=== PATIENT | male | born 1965 | race Caucasian/White ===

== ENCOUNTER 2019-05-11 08:49 | Day surgery (SDC) | payer OTHER, SELFPAY ==
[2019-05-11] VITALS (17 sets, daily range): BP systolic 98–143; BP diastolic 60–81; PULSE 65–76; RESP 15–18; TEMP 36.2–37; O2SAT 92–98; BMI 33.2
--- NOTE | 2019-05-11 | PATH_ITS ---
Note [facility] Accession Number: [id number] TESTS RESULT FLAG UNITS REF RANGE LAB Clinician Provided Cytology Information No. of containers..01 ThinPrep Vial 01 ANTERIOR R LOBE LIVE Clinician ICD10: K74.60 R70.89 DIAGNOSIS: 02 ANTERIOR R LOBE LIVE NEGATIVE FOR MALIGNANT CELLS. iB The cell block contains cores of liver tissue. A trichrome stain reveals prominent hepatic fibrosis with bridging and focal nodularity consistent with cirrohis. There is mild fatty metamorphosis. Portal areas contain some mononuclear inflammatory cells and bile ducts appear normal. There is no significant parenchymal inlflamation and no bile stasis. An iron stain is negative. Pathologist ICD10: 02 K74.60 02 Rashid Delcid MD, Pathologist NPI- [id number] Alok Hamilton, Judo Teacher ([facility]) 01 55 CC, COLORLESS, CLEAR /LCS FLAG LEGEND: L-Low Normal,H-High Normal,LL-Alert Low,HH-Alert High <-Panic Low,>-Panic High,A-Abnormal,AA-Critical Abnormal Performed at: 01 =Z [facility] [address] [facility] [place], [place] [address] Jovanni Beaulieu MD, 02 LCLWA [facility] [place] [address] [place] [id number] Nova Ozuna MD, Performed at: 01 [facility] [address] [facility] [place], [place], [place] [id number] MD Jovanni Beaulieu MD Phone: [phone]
--- NOTE | 2019-05-11 | DI.US.S_ITS ---
PROCEDURE: US ABDOMEN LIMITED INDICATIONS: POST LIVER BIOPSY PAIN TECHNIQUE: Real-time focused scanning was performed of the abdomen, with image documentation. COMPARISON: None. FINDINGS: Ultrasound examination of all 4 quadrants of abdomen and pericolic gutters showed no free fluid. No hematoma formation. IMPRESSION: No evidence of free fluid or hematoma formation. No evidence of active bleeding. Dictated by: Bear Victor M.D. on 05/11/2019 at 14:57 Approved by: Bear Victor M.D. on 05/11/2019 at 14:57
--- NOTE | 2019-05-11 | DI.US.S_ITS ---
PROCEDURE: US BIOPSY LIVER Ultrasound-guided liver biopsy with sedation analgesia for 30 minutes. INDICATIONS: CIRRHOSIS TECHNIQUE: The indications, alternatives, benefits, risks, and complications of the procedure were explained to the patient. Written informed consent was obtained and placed in the chart. Continuous EKG and hemodynamic monitoring was started by trained personnel. Real-time sonography was utilized to choose the site for percutaneous hepatic biopsy. The skin was prepped and draped in the usual sterile fashion. 1% lidocaine was infiltrated down to the hepatic capsule. A coaxial needle was then advanced into the liver under direct sonographic visualization. A biopsy apparatus was then utilized, and core biopsies were obtained. The needle was then withdrawn; a bandage and overlying weight were applied to the biopsy site. COMPARISON: None. FINDINGS: Biopsy site(s): Right hepatic lobe, anterior segment Needle: Netsket biopsy needle set, 20 gauge, 19 gauge trocar. Number of passes: 5, 2 for cyto-prep fluid transport and 3 for formalin fluid transport. Medications: 1% lidocaine for local anaesthesia. IV Versed and Fentanyl for conscious sedation for 30 minutes (see nursing record). Complications: None. IMPRESSION: Successful ultrasound-guided liver biopsy, with pathology results pending. Dictated by: Tyron Fine M.D. on 05/11/2019 at 12:43 Approved by: Tyron Fine M.D. on 05/11/2019 at 12:44
[2019-05-11 09:33] LABS: Add Manual Diff / Slide Review NO; Basophils Absolute Auto 0 /uL (0-100); Basophils Percent Auto 0.4 % (0-2); Eosinophils Absolute Auto 100 /uL (0-450); Eosinophils Percent Auto 2.2 % (2-4); Hematocrit 41.9 % (41-53); Hemoglobin 14.8 g/dL (13.5-17.5); Lymphocytes Absolute Auto 1700 /uL (1100-4500); Lymphocytes Percent Auto 36.3 % (25-40); Mean Corpuscular HGB Conc 35.3 % (30-36); Mean Corpuscular Volume 93.5 fL (80-100); Monocytes Absolute Auto 400 /uL (0-900); Monocytes Percent Auto 8.4 % (3-14); Neutrophils Absolute Auto 2500 /uL (1500-7000); Neutrophils Percent Auto 52.7 % (50-75); Platelet Count 115 X10^3/uL (150-400); Red Blood Cell Count 4.49 X10^6/uL (4.5-5.9); Red Cell Distribution Width 13.5 % (11.6-14.8); White Blood Cell Count 4.7 X10^3/uL (4.5-11.0)
[2019-05-11 09:55] LABS: INR 1.1 (0.9-1.3); Prothrombin Time 12.7 SECONDS (10.1-12.7)
[2019-05-11 09:57] LABS: PTT Partial Thromboplastin Tim 36 SECONDS (26.4-36.2)
[2019-05-11] MEDS: fentaNYL 100 MCG/2 ML INJ 50 MCG IV (10:42)
[2019-05-11] MEDS: MIDAZOLAM 2 MG/2 ML VIAL 1 MG IV (10:42)
--- NOTE | 2019-05-11 10:57 | PC.NURSE ---
Pt tolerated procedure well. Transferred pt via stretcher to PACU and handed off report to Sivan DESAI. Pt awake and alert the whole time. Pain was a 0/10 prior to procedure and 0/10 post procedure. VVO from Dr. Tyron Fine to keep Sandbag on biopsy site for one hour.
--- NOTE | 2019-05-11 12:10 | SUR.PHASEII ---
at 1200 weight removed from pt's abdomen per Dr. Fine. pt now at 45 degree angle to eat lunch.
--- NOTE | 2019-05-11 13:32 | SUR.PHASEII ---
Pt reported 4-5/10 site pain. Stated it was slowly getting worse and then was much worse upon standing up. Ice pack provided. Dr. Fine notified. DI scan planned per Dr. Fine, pt and family notified.
--- NOTE | 2019-05-11 14:10 | SUR.PHASEII ---
Pt's BP is 98/60 and baseline pre-op was 117/70. This finding was reported to Dr. Fine. Lab at bedside for STAT hematocrit.
[2019-05-11 14:25] LABS: Hematocrit 39.6 % (41-53)
--- NOTE | 2019-05-11 15:20 | SUR.PHASEII ---
1420: reported hematocrit result to Dr. Fine who then told me it was okay for the pt to be discharged home. one last set of VS were taken and pt's low BP has resolved, all VSS stable, pt on RA. Pt c/o 03/07 pain, Dr. Fine aware. Pt ambulated to the restroom before being discharged home in a .
== END 2019-05-11 14:50 | disposition home or self-care (01) ==
PROVIDERS: Nurse Practitioner Adult Health; PCP Internal Medicine; Visit Provider Internal Medicine Gastroenterology
DX: K74.60 Unspecified cirrhosis of liver (principal); R79.89 Other specified abnormal findings of blood chemistry; I10 Essential (primary) hypertension; J44.9 Chronic obstructive pulmonary disease, unspecified; E66.9 Obesity, unspecified; E11.9 Type 2 diabetes mellitus without complications; E78.5 Hyperlipidemia, unspecified; K21.9 Gastro-esophageal reflux disease without esophagitis; Z79.4 Long term (current) use of insulin
CPT/HCPCS: 36415; 47000; 76705; 76942; 85014; 85025; 85610; 85730; 88307; 88313; J2250; J3010

== ENCOUNTER 2020-10-11 15:01 | Emergency (ER) | payer OTHER, SELFPAY ==
[2020-10-11] VITALS (18 sets, daily range): BP systolic 99–163; BP diastolic 64–80; PULSE 68–80; RESP 12–24; O2SAT 89–96; BMI 35.5
--- NOTE | 2020-10-11 15:25 | DI.RAD.S_ITS ---
PROCEDURE: XR CHEST 1V INDICATIONS: Diminished breath sounds Left TECHNIQUE: One view of the chest was acquired. COMPARISON: [facility], , CHEST 1 VIEW, 07/31/2012, 22:36. FINDINGS: Surgical changes and devices: None. Lungs and pleura: Severe bilateral emphysematous. No pleural effusions . Small left pneumothorax. Mediastinum: Mediastinal contours appear normal. Heart size is normal. Bones and chest wall: No suspicious bony lesions. Overlying soft tissues appear unremarkable. IMPRESSION: 1. Small left pneumothorax. 2. Severe emphysema. 3. Findings discussed with Dr. Bhatia on 10/11/2020 at 15:53 hours. Dictated by: Panchito Cervantes M.D. on 10/11/2020 at 15:52 Approved by: Panchito Cervantes M.D. on 10/11/2020 at 15:54
[2020-10-11 15:39] LABS: Add Manual Diff / Slide Review NO; Basophils Absolute Auto 0 /uL (0-100); Basophils Percent Auto 0.2 % (0-2); Eosinophils Absolute Auto 100 /uL (0-450); Eosinophils Percent Auto 2.2 % (2-4); Hematocrit 42.6 % (41-53); Hemoglobin 14.3 g/dL (13.5-17.5); Lymphocytes Absolute Auto 1600 /uL (1100-4500); Lymphocytes Percent Auto 23.9 % (25-40); Mean Corpuscular HGB Conc 33.6 % (30-36); Mean Corpuscular Hemoglobin 30.9 PG (26-34); Mean Corpuscular Volume 91.9 fL (80-100); Monocytes Absolute Auto 600 /uL (0-900); Monocytes Percent Auto 8.7 % (3-14); Neutrophils Absolute Auto 4200 /uL (1500-7000); Platelet Count 130 X10^3/uL (150-400); Red Blood Cell Count 4.63 X10^6/uL (4.5-5.9); Red Cell Distribution Width 15.8 % (11.6-14.8); White Blood Cell Count 6.5 X10^3/uL (4.5-11.0)
[2020-10-11 15:43] LABS: Alanine Aminotransferase 55 IU/L (<50); Albumin 4.6 g/dL (3.5-5.0); Albumin Globulin Ratio 1.3 (1.0-2.8); Alkaline Phosphatase 107 U/L (38-126); Aspartate Aminotransferase 59 IU/L (17-59); BUN Creatinine Ratio 22.2 (6-22); Bilirubin Total 1.1 mg/dL (0.2-1.3); Blood Urea Nitrogen 16 mg/dL (9-20); Calcium 9.7 mg/dL (8.4-10.2); Carbon Dioxide 27 mmol/L (22-32); Chloride 102 mmol/L (98-107); Estimated Glomerular Filt Rate > 60.0 mL/min (>60); Globulin 3.6 g/dL (1.7-4.1); Glucose 124 mg/dL (70-100); HEMOLYSIS < 15 (0-50); Potassium 3.7 mmol/L (3.4-5.1); Sodium 136 mmol/L (137-145); Total Protein 8.2 g/dL (6.3-8.2)
[2020-10-11 15:44] LABS: Lactate (Lactic Acid) 1.5 mmol/L (0.7-2.1)
--- NOTE | 2020-10-11 15:48 | PC.NURSE ---
Reports pain that started on tuesday. Worse with inspiration. History of 6 collapsed lungs and pleurisy pain.
[2020-10-11 15:51] LABS: Creatine Kinase 61 U/L (55-170)
--- NOTE | 2020-10-11 15:54 | ED_ITS ---
HPI - Chest Pain General Chief Complaint: Chest Pain Stated Complaint: Thinks pleurisy left side of chest, SOB, COPD Time Seen by Provider: 10/11/20 15:28 Source: patient Mode of arrival: Ambulatory Limitations: no limitations History of Present Illness HPI narrative: Patient is a 55-year-old male with history of 5 pneumothoraces severe blood disease, COPD, JIMMY presenting with left-sided chest pain radiating along his left side for the last 2-3 days. He thinks this may be another pneumothorax. Hurts every time he breathes. He was previously seen at [place] for his pneumothoraces. He states today he has no fever or cough no heart palpitations. MD complaint: chest pain Onset (ago): day(s) (3) Duration: constant Related Data Home Medications Medication Instructions Recorded Confirmed Metformin Hydrochloride 1,000 mg PO BIDCC #0 07/31/12 (GLUCOPHAGE) atenolol 100 mg PO QDAY #0 07/31/12 atorvastatin [Lipitor] 40 mg PO HS #0 07/31/12 hydrochlorothiazide 25 mg PO QDAY #0 07/31/12 ASPIRIN (#ASPIR 81) 81 mg PO Q DAY #0 08/01/12 Multivitamin, Minerals, and 1 tab PO Q DAY #0 08/01/12 (#CENTRUM SILVER) bupropion HCl [Wellbutrin SR] 150 mg PO Q DAY #0 08/01/12 esomeprazole magnesium [Nexium] 40 mg PO Q DAY #0 08/01/12 Allergies Allergy/AdvReac Type Severity Reaction Status Date / Time No Known Drug Allergies Allergy Verified 10/11/20 15:19 Review of Systems Review of Systems Narrative: GENERAL: Denies chills, fatigue, malaise, fever, sweats, travel HEENT: Denies sinus pain, ear pain, sore throat, difficulty swallowing, neck pain RESPIRATORY: See HPI CARDIOVASCULAR: Denies chest pain, palpitations, orthopnea, edema GASTROINTESTINAL: Denies nausea, vomiting, abdominal pain, diarrhea, constipat ion, melena. : Denies dysuria, frequency, incontinence, hematuria, urinary retention, flank pain. MUSCULOSKELETAL: Denies weakness, joint pain, or bony pain SKIN: No rash, no erythema, no pruritus NEUROLOGIC: Denies weakness, dizziness, headache, numbness, change in speech, confusion PSYCHIATRIC: No concerning psychosocial issues. 12 point review of systems is negative except for those stated above and HPI Patient History Social History household members: spouse Smoking Status: Former smoker Smoking Status: Former smoker Substance Use Type: does not use Exam Initial Vital Signs Initial Vital Signs: Vital Signs Pulse Rate 78 10/11/20 15:10 Respiratory Rate 20 10/11/20 15:10 Blood Pressure 123/72 10/11/20 15:10 Pulse Oximetry 92 10/11/20 15:10 GENERAL: Well-appearing, well-nourished and in no acute distress. HEENT: Head atraumatic,EOMI, pupils reactive, face symmetric, moist mucous membrane CARDIOVASCULAR: Regular rate and rhythm without murmurs, rubs or gallops. RESPIRATORY: Decreased breath sounds on the left no respiratory distress, no trachea deviation, no subcutaneous air, speaks in full sentences without difficulty ABDOMEN: Soft, nontender. Normoactive bowel sounds all 4 quadrants. No guarding or rebound. EXTREMITIES: Normal range of motion, no clubbing or edema. Neurovascularly intact NEUROLOGICAL: Alert and oriented x4.Normal gait and speech. Cranial nerves II through XII grossly intact. SKIN: Warm, dry, no laceration, no petechiae, no rashes or lesions. Procedures Chest Tube Chest Tube 1: Chest Tube Location: left, mid axillary line and fourth interspace Chest Tube Prep: Yes betadine prep and sterile drapes applied Local Anesthetic: lidocaine 1% Amount of anesthesia used (mL): 10 Incision Made With: #10 blade Post Procedure: sutured to skin Tube Drainage: none Post Procedure CXR?: Yes Patient Tolerated Procedure: Yes Course Orders Ordered: ED Orders 10/11/20 15:15 Complete Blood Count AUTO DIFF Stat Comprehensive Metabolic Panel Stat Lactate (Lactic Acid) Stat Magnesium Stat NT-proBNP (BNP-Adult 18+) Stat Procalcitonin Stat Troponin & CK Cardiac Panel Stat 10/11/20 15:24 EKG-12 Lead Stat 10/11/20 15:25 XR chest 1V Stat 10/11/20 16:21 CT chest wo con Stat 10/11/20 18:52 XR chest 1V Stat 10/11/20 19:20 COVID19 Stat Discontinued Medications Hydromorphone HCl (Dilaudid) 0.5 mg IV NOW ONE Stop: 10/11/20 18:17 Last Admin: 10/11/20 18:18 Dose: 0.5 mg Documented by: SHAWANDA Hydromorphone HCl (Dilaudid) 1 mg IV NOW ONE Stop: 10/11/20 19:05 Last Admin: 10/11/20 19:09 Dose: 1 mg Documented by: SHAWANDA Ketorolac Tromethamine (Toradol) 15 mg IV NOW ONE Stop: 10/11/20 15:50 Last Admin: 10/11/20 16:01 Dose: 15 mg Documented by: SHAWANDA Lidocaine HCl (Xylocaine 2%) 1 ml SUBCUT NOW ONE Stop: 10/11/20 18:11 Last Admin: 10/11/20 18:19 Dose: 1 ml Documented by: SHAWANDA Morphine Sulfate (Morphine) 2 mg IV NOW ONE Stop: 10/11/20 15:50 Last Admin: 10/11/20 16:02 Dose: 2 mg Documented by: SHAWANDA Vital Signs Vital signs: Vital Signs - 8 hr 10/11/20 15:10 10/11/20 15:11 10/11/20 15:30 Pulse Rate 79 77 77 Respiratory Rate 20 22 16 Blood Pressure 123/72 123/72 Pulse Oximetry 93 93 89 L 10/11/20 15:31 10/11/20 16:00 10/11/20 16:35 Pulse Rate 77 80 72 Respiratory Rate 15 24 Blood Pressure 123/64 120/80 Pulse Oximetry 90 L 92 96 10/11/20 16:36 10/11/20 17:00 10/11/20 17:30 Pulse Rate 74 75 79 Respiratory Rate 12 15 Blood Pressure 119/78 116/72 Pulse Oximetry 95 95 94 10/11/20 17:31 10/11/20 18:00 10/11/20 18:01 Pulse Rate 79 73 73 Respiratory Rate 12 16 Blood Pressure 163/70 H 99/68 Pulse Oximetry 94 95 94 10/11/20 18:19 10/11/20 18:30 10/11/20 19:00 Pulse Rate 71 73 69 Respiratory Rate 15 19 16 Blood Pressure 123/68 125/67 116/69 Pulse Oximetry 94 94 94 MDM - Chest Pain Lab Data Attestation: I reviewed the patient's lab results. Result diagrams: 10/11/20 15:15 10/11/20 15:15 Labs: Lab Results 10/11/20 10/11/20 10/11/20 Range/Units 15:15 15:15 15:15 WBC 6.5 (4.5-11.0) X10^3/uL RBC 4.63 (4.5-5.9) X10^6/uL Hgb 14.3 (13.5-17.5) g/dL Hct 42.6 (41-53) % MCV 91.9 (80-100) fL MCH 30.9 (26-34) PG MCHC 33.6 (30-36) % RDW 15.8 H (11.6-14.8) % Plt Count 130 L (150-400) X10^3/uL Neut % (Auto) 65.0 (50-75) % Lymph % (Auto) 23.9 L (25-40) % Casey % (Auto) 8.7 (3-14) % Eos % (Auto) 2.2 (2-4) % Baso % (Auto) 0.2 (0-2) % Neut # (Auto) 4200 (1772-9029) /uL Lymph # (Auto) 1600 (2754-0246) /uL Casey # (Auto) 600 (0-900) /uL Eos # (Auto) 100 (0-450) /uL Baso # (Auto) 0 (0-100) /uL Sodium (137-145) mmol/L Potassium (3.4-5.1) mmol/L Chloride (98-107) mmol/L Carbon Dioxide (22-32) mmol/L BUN (9-20) mg/dL Creatinine (0.66-1.25) mg/dL Estimated GFR (>60) mL/min BUN/Creatinine Ratio (6-22) Glucose (70-100) mg/dL Lactate (0.7-2.1) mmol/L Calcium (8.4-10.2) mg/dL Magnesium 2.0 (1.6-2.3) mg/dL Total Bilirubin (0.2-1.3) mg/dL AST (17-59) IU/L ALT (<50) IU/L Alkaline Phosphatase (38-126) U/L Total Creatine Kinase 61 (55-170) U/L CK-MB (CK-2) TNP CK-MB (CK-2) Rel Index TNP Troponin I < 0.012 (0.01-0.034) ng/mL NT-Pro-B Natriuret Pep 29 (<125) pg/mL Total Protein (6.3-8.2) g/dL Albumin (3.5-5.0) g/dL Globulin (1.7-4.1) g/dL Albumin/Globulin Ratio (1.0-2.8) Procalcitonin < 0.05 (<0.5) ng/mL 10/11/20 10/11/20 Range/Units 15:15 15:15 WBC (4.5-11.0) X10^3/uL RBC (4.5-5.9) X10^6/uL Hgb (13.5-17.5) g/dL Hct (41-53) % MCV (80-100) fL MCH (26-34) PG MCHC (30-36) % RDW (11.6-14.8) % Plt Count (150-400) X10^3/uL Neut % (Auto) (50-75) % Lymph % (Auto) (25-40) % Casey % (Auto) (3-14) % Eos % (Auto) (2-4) % Baso % (Auto) (0-2) % Neut # (Auto) (1332-1478) /uL Lymph # (Auto) (3672-3185) /uL Casey # (Auto) (0-900) /uL Eos # (Auto) (0-450) /uL Baso # (Auto) (0-100) /uL Sodium 136 L (137-145) mmol/L Potassium 3.7 (3.4-5.1) mmol/L Chloride 102 (98-107) mmol/L Carbon Dioxide 27 (22-32) mmol/L BUN 16 (9-20) mg/dL Creatinine 0.72 (0.66-1.25) mg/dL Estimated GFR > 60.0 (>60) mL/min BUN/Creatinine Ratio 22.2 H (6-22) Glucose 124 H (70-100) mg/dL Lactate 1.5 (0.7-2.1) mmol/L Calcium 9.7 (8.4-10.2) mg/dL Magnesium (1.6-2.3) mg/dL Total Bilirubin 1.1 (0.2-1.3) mg/dL AST 59 (17-59) IU/L ALT 55 H (<50) IU/L Alkaline Phosphatase 107 (38-126) U/L Total Creatine Kinase (55-170) U/L CK-MB (CK-2) CK-MB (CK-2) Rel Index Troponin I (0.01-0.034) ng/mL NT-Pro-B Natriuret Pep (<125) pg/mL Total Protein 8.2 (6.3-8.2) g/dL Albumin 4.6 (3.5-5.0) g/dL Globulin 3.6 (1.7-4.1) g/dL Albumin/Globulin Ratio 1.3 (1.0-2.8) Procalcitonin (<0.5) ng/mL Imaging Data Chest x-ray: Radiologist's Impression: PROCEDURE: XR CHEST 1V INDICATIONS: Diminished breath sounds Left TECHNIQUE: One view of the chest was acquired. COMPARISON: formerly [facility], CHEST 1 VIEW, 07/31/2012, 22:36. FINDINGS: Surgical changes and devices: None. Lungs and pleura: Severe bilateral emphysematous. No pleural effusions . Smal l left pneumothorax. Mediastinum: Mediastinal contours appear normal. Heart size is normal. Bones and chest wall: No suspicious bony lesions. Overlying soft tissues appear unremarkable. IMPRESSION: 1. Small left pneumothorax. 2. Severe emphysema. 3. Findings discussed with Dr. Bhatia on 10/11/2020 at 15:53 hours. Dictated by: Panchito Cervantes M.D. on 10/11/2020 at 15:52 Approved by: Panchito Cervantes M.D. on 10/11/2020 at 15:54 CT scan - chest: Radiologist's Impression: PROCEDURE: CT CHEST WO CON INDICATIONS: LEFT PNEUMO? TECHNIQUE: Noncontrast 5 mm thick sections acquired from the pulmonary apices to the posterior costophrenic angles. 1 mm lung window, 5 mm thick coronal and sagittal and 7 mm axial MIP reformats were then acquired. For radiation dose reduction, the following was used: automated exposure control, adjustment of mA and/or kV according to patient size. COMPARISON: [facility], , CT ABDOMEN lobe. W/WO CONTRAST, 05/03/2018, 8:27. formerly [facility], XR CHEST 1V, 10/11/2020, 15:43. FINDINGS: Image quality: Excellent. Lungs and pleura: Severe emphysema is present, as before. There is a small to moderate left pneumothorax, as previously documented by plain film. Mild dependent atelectasis versus pneumonia within the left lower lobe. No pleural effusion. Central and peripheral airways are patent and normal in caliber. Mediastinum: Heart size is normal. Calcification of the coronary vasculature. No pericardial effusion. No mediastinal adenopathy by size criteria. Thoracic aorta and central pulmonary arteries are normal in size. Esophagus is normal in caliber. No hiatal hernia. Bones and chest wall: No suspicious bony lesions. No vertebral body compression fractures. No axillary or supraclavicular adenopathy by size criteria. Thyroid gland is within normal limits . Abdomen: Visualized upper abdominal solid organs and bowel loops appear normal in the absence of contrast. IMPRESSION: 1. Left pneumothorax is present, as documented by same-day plain film. 2. Emphysema. 3. Left lower lobe atelectasis versus pneumonia. 4. Coronary artery disease. Dictated by: Panchito Cervantes M.D. on 10/11/2020 at 16:39 chest xr #2: Radiologist's Impression: PROCEDURE: XR CHEST 1V INDICATIONS: post chest tube TECHNIQUE: One view of the chest was acquired. COMPARISON: formerly [facility], XR CHEST 1V, 10/11/2020, 15:43. FINDINGS: Surgical changes and devices: A left-sided chest tube is present. Lungs and pleura: The previously seen left pneumothorax has decreased in size with trace residual pneumothorax at the lung apex. Severe emphysematous changes are again noted in both lungs that are more prominent at the lung apices. Mediastinum: Mediastinal contours appear normal. Heart size is normal. Bones and chest wall: No suspicious bony lesions. Overlying soft tissues appear unremarkable. IMPRESSION: Status post left chest tube placement with decreased size of the previously seen small left pneumothorax. Severe emphysematous changes again noted bilaterally. Dictated by: Prakash Alberto M.D. on 10/11/2020 at 19:33 ECG Data Attestation: I personally reviewed and interpreted this ECG as follows: Prior ECG tracings: not available for review Interpretation: Normal sinus rhythm rate 78 p.r. interval 148 QRS [address] changes [facility] Narrative Medical decision making narrative: 1620-Dr. Yanez surgery consult in regards to small pneumothorax. Recommended chest CT. She has reviewed chest CT there is any pneumothorax. Patient has severe bleb disease. Recommends patient be transferred to place where CVT is available. 1730- Dr. Patel, CVT at [place] has reviewed patient's records. Patient previously has not been a candidate for any further treatment or intervention. He agrees with either a pigtail catheter or or chest tube. He is happy to accept patient for management of pneumothorax Discharge Plan Departure Patient Disposition: [facility] Clinical Impression: Pneumothorax Qualifiers: Pneumothorax type: spontaneous, secondary Qualified Code(s): J93.12 - Secondary spontaneous pneumothorax Prescriptions: No Action atenolol 100 MG tablet 100 mg PO QDAY Qty: 0 RF: 0 Metformin Hydrochloride (GLUCOPHAGE) 1,000 mg PO BIDCC Qty: 0 RF: 0 atorvastatin [Lipitor] 40 MG tablet 40 mg PO HS Qty: 0 RF: 0 hydrochlorothiazide 25 MG tablet 25 mg PO QDAY Qty: 0 RF: 0 ASPIRIN (#ASPIR 81) 81 mg PO Q DAY Qty: 0 RF: 0 bupropion HCl [Wellbutrin SR] 150 MG tablet extended release 12 hr 150 mg PO Q DAY Qty: 0 RF: 0 esomeprazole magnesium [Nexium] 40 MG capsule,delayed release(DR/EC) 40 mg PO Q DAY Qty: 0 RF: 0 Multivitamin, Minerals, and (#CENTRUM SILVER) 1 tab PO Q DAY Qty: 0 RF: 0
[2020-10-11 15:57] LABS: Procalcitonin < 0.05 ng/mL (<0.5)
[2020-10-11] MEDS: KETOROLAC 60 MG/2 ML VIAL 15 MG IV (16:01)
[2020-10-11] MEDS: MORPHINE 2 MG/ML INJ IV (16:02)
[2020-10-11 16:04] LABS: NT-proBNP (BNP-Adult 18+) 29 pg/mL (<125); Troponin I < 0.012 ng/mL (0.01-0.034)
--- NOTE | 2020-10-11 16:21 | DI.CT.S_ITS ---
PROCEDURE: CT CHEST WO CON INDICATIONS: LEFT PNEUMO? TECHNIQUE: Noncontrast 5 mm thick sections acquired from the pulmonary apices to the posterior costophrenic angles. 1 mm lung window, 5 mm thick coronal and sagittal and 7 mm axial MIP reformats were then acquired. For radiation dose reduction, the following was used: automated exposure control, adjustment of mA and/or kV according to patient size. COMPARISON: [facility], RG, CT ABDOMEN lobe. W/WO CONTRAST, 05/03/2018, 8:27. [facility], CR, XR CHEST 1V, 10/11/2020, 15:43. FINDINGS: Image quality: Excellent. Lungs and pleura: Severe emphysema is present, as before. There is a small to moderate left pneumothorax, as previously documented by plain film. Mild dependent atelectasis versus pneumonia within the left lower lobe. No pleural effusion. Central and peripheral airways are patent and normal in caliber. Mediastinum: Heart size is normal. Calcification of the coronary vasculature. No pericardial effusion. No mediastinal adenopathy by size criteria. Thoracic aorta and central pulmonary arteries are normal in size. Esophagus is normal in caliber. No hiatal hernia. Bones and chest wall: No suspicious bony lesions. No vertebral body compression fractures. No axillary or supraclavicular adenopathy by size criteria. Thyroid gland is within normal limits . Abdomen: Visualized upper abdominal solid organs and bowel loops appear normal in the absence of contrast. IMPRESSION: 1. Left pneumothorax is present, as documented by same-day plain film. 2. Emphysema. 3. Left lower lobe atelectasis versus pneumonia. 4. Coronary artery disease. Dictated by: Panchito Cervantes M.D. on 10/11/2020 at 16:39 Approved by: Panchito Cervantes M.D. on 10/11/2020 at 16:41
[2020-10-11] MEDS: HYDROMORPHONE 0.5 MG INJ IV (18:18)
[2020-10-11] MEDS: LIDOCAINE 2% INJ MDV 1 ML SUBCUT (18:19)
--- NOTE | 2020-10-11 18:52 | DI.RAD.S_ITS ---
PROCEDURE: XR CHEST 1V INDICATIONS: post chest tube TECHNIQUE: One view of the chest was acquired. COMPARISON: [facility], , XR CHEST 1V, 10/11/2020, 15:43. FINDINGS: Surgical changes and devices: A left-sided chest tube is present. Lungs and pleura: The previously seen left pneumothorax has decreased in size with trace residual pneumothorax at the lung apex. Severe emphysematous changes are again noted in both lungs that are more prominent at the lung apices. Mediastinum: Mediastinal contours appear normal. Heart size is normal. Bones and chest wall: No suspicious bony lesions. Overlying soft tissues appear unremarkable. IMPRESSION: Status post left chest tube placement with decreased size of the previously seen small left pneumothorax. Severe emphysematous changes again noted bilaterally. Dictated by: Prakash Alberto M.D. on 10/11/2020 at 19:33 Approved by: Prakash Alberto M.D. on 10/11/2020 at 19:35
[2020-10-11] MEDS: HYDROMORPHONE 1 MG INJ IV (19:09)
[2020-10-11 19:45] LABS: COVID19 -Nasal RAPID Negative (Negative)
== END 2020-10-11 20:20 | disposition short-term general hospital (02) ==
PROVIDERS: Emergency Provider Emergency Medicine
DX: J93.9 Pneumothorax, unspecified (principal); R07.9 Chest pain, unspecified
CPT/HCPCS: 32551; 36415; 71045; 71250; 80053; 82550; 83605; 83735; 83880; 84145; 84484; 85025; 87635; 93005; 96374; 96375; 96376; 99284; 99285; J1170; J1885; J2270

== ENCOUNTER → 2021-09-08 07:47 | Outpatient (CLI) | payer OTHER, SELFPAY ==
[2021-09-08 08:46] LABS: COVID19 -Nasal RAPID Negative (Negative)
== END ==
PROVIDERS: PCP Internal Medicine; Referring Provider Internal Medicine; Visit Provider Internal Medicine
DX: Z20.822 Contact with and (suspected) exposure to COVID-19 (principal)
CPT/HCPCS: 87635; C9803

== ENCOUNTER → 2021-09-08 07:50 | Outpatient (CLI) | payer OTHER, SELFPAY ==
--- NOTE | 2021-09-08 11:36 | PM.PFT.1 ---
Pulmonary Function Test Referral & Results Date Patient Seen: 09/08/21 Requesting provider: Nataliya James Indication: Emphysema Results: The spirometry demonstrates an FVC of 4.30 L which is 73% of predicted. The FEV1 was measured at 2.44 L which is 54% of predicted. The FEV1/FVC ratio was 57 which is 74% of predicted. Following the administration of bronchodilator there was a 6% improvement in FEV1 and a 29% improvement in FEF 25-75% Lung volumes show an SVC of 4.42 L which is 78% of predicted. The diffusing capacity was measured at 24.20 which is 59% of predicted. No hemoglobin value was provided, so no correction for potential anemia could be made, if appropriate. The maximum voluntary ventilation was reduced Interpretation: This study demonstrates moderately severe obstructive lung disease based on reduction FEV1 and more minor reduction FEV1/FVC ratio. There is only limited evidence of benefit following bronchodilator most prominently seen in small airway flow based on improvement in FEF 25-75% as above There is mild restrictive lung disease present based on reduction SVC There is a moderate reduction in diffusing capacity suggesting moderate disease at the capillary alveolar level as well, unless patient is anemic as above. Clinical correlation suggested
== END ==
PROVIDERS: PCP Internal Medicine; Referring Provider Surgery; Visit Provider Surgery
DX: J43.9 Emphysema, unspecified (principal); Z87.891 Personal history of nicotine dependence; Z20.822 Contact with and (suspected) exposure to COVID-19
CPT/HCPCS: 87635; 94060; 94726; 94729; C9803

== ENCOUNTER → 2022-08-24 10:05 | Outpatient (CLI) | payer OTHER, SELFPAY ==
[2022-08-24 10:39] LABS: COVID19 -Nasal RAPID Negative (Negative)
== END ==
PROVIDERS: PCP Internal Medicine; Visit Provider Surgery
DX: Z20.822 Contact with and (suspected) exposure to COVID-19 (principal); Z01.812 Encounter for preprocedural laboratory examination
CPT/HCPCS: 87635; C9803

== ENCOUNTER 2022-08-25 06:40 | Day surgery (SDC) | payer OTHER, SELFPAY ==
--- NOTE | 2022-08-25 | PATH_ITS ---
[facility] Accession Number: [id number] No. of containers..03 Tissue . 01 Material submitted: . PART A: stomach - STOMACH POLYPS PART B: colon - ASCENDING COLON POLYP PART C: colon - TRANSVERSE COLON POLYP . 01 Diagnosis: A. Stomach Polyps, Biopsy: Fundic gland polyps. No Helicobacter pylori organisms on H/E stain. No intestinal metaplasia, dysplasia or malignancy. . B. Ascending Colon Polyp, Biopsy: Tubular adenoma. . C. Transverse Colon Polyp, Biopsy: Colonic mucosa with no significant diagnostic alterations. No dysplasia or malignancy. Foreign material consistent with food/plant material identified. [facility] 08/30/2022 1616 Local . 01 Electronically signed: . Jneniffer Ramirez MD, Pathologist NPI- [id number] . 01 Gross description: . Part A: STOMACH POLYPS: Received in formalin are 2 fragment(s) of moya, soft tissue measuring 0.1 x 0.1 x 0.1 cm to 0.1 x 0.1 x 0.1 cm submitted entirely in 1 cassette(s) Part B: ASCENDING COLON POLYP: Received in formalin are multiple fragment(s) of moya, soft tissue measuring 0.8 x 0.7 x 0.1 cm in aggregate submitted entirely in 1 cassette(s) Part C: TRANSVERSE COLON POLYP: Received in formalin are multiple fragment(s) of moya, soft tissue measuring 1.3 x 0.3 x 0.1 cm in aggregate submitted entirely in 1 cassette(s) /CPE 08/27/2022 0823 Local . 01 Pathologist provided ICD-10: D13.1, D12.2 . 01 CPT . 978592, 968697, 608609 Performed at: 01 [facility] [address] [place] [address], [place], [place] [id number] MD Jovanni Beaulieu MD Phone: [phone]
[2022-08-25 07:17] VITALS: BP 153/85; PULSE 112; RESP 19; TEMP 36.1; O2SAT 95; BMI 33.7
--- NOTE | 2022-08-25 07:53 | PM.HP.1 ---
History of Present Illness History of Present Illness Date Patient Seen: 08/25/22 Time Patient Seen: 07:54 Chief complaint: Colonoscopy/EGD Narrative: I reviewed the recent note by Dr. Dove. No significant changes. Patient History Family & Social History Social History: household members spouse Tobacco & Substance use: Smoking Status Former smoker alcohol intake never Substance Use Type does not use Meds Home Medications and Allergies Home Medications Medication Instructions Recorded Confirmed Type Metformin Hydrochloride 1,000 mg PO BIDCC ##0 07/31/12 History (GLUCOPHAGE) atenolol 100 mg tablet 100 mg PO QDAY ##0 07/31/12 History atorvastatin 40 mg tablet (Lipitor) 40 mg PO HS ##0 07/31/12 History hydrochlorothiazide 25 mg tablet 25 mg PO QDAY ##0 07/31/12 History ASPIRIN (#ASPIR 81) 81 mg PO Q DAY ##0 08/01/12 History Multivitamin, Minerals, and 1 tab PO Q DAY ##0 08/01/12 History (#CENTRUM SILVER) bupropion HCl 150 mg tablet,12 hr 150 mg PO Q DAY ##0 08/01/12 History sustained-release (Wellbutrin SR) esomeprazole magnesium 40 mg 40 mg PO Q DAY ##0 08/01/12 History capsule,delayed release (Nexium) Allergies Allergy/AdvReac Type Severity Reaction Status Date / Time No Known Drug Allergies Allergy Verified 08/25/22 07:35 Review of Systems Review of Systems ROS: Yes All systems reviewed with the patient and are negative except as otherwise documented Exam Vital Signs (past 8 hours): - 08/25/22 07:17 Temperature 97.0 F L Pulse Rate 112 H Respiratory Rate 19 Blood Pressure 153/85 H Pulse Oximetry 95 Oxygen Delivery Method Room Air Oxygen Delivery Method Room Air Const General: cooperative HENMT Head: normal to inspection Eyes General: appearance normal, both eyes and all related structures Neck Neck: normal visual inspection Chest Chest: normal inspection of the chest Resp Effort & Inspection: normal respiratory effort Cardio Rate: regular rate GI Inspection: normal to inspection Skin General: no rashes or lesions noted Neuro General: patient alert and patient awake Extrem General: normal to inspection and no pedal edema Psych Appearance: grossly normal Assessment & Plan Assessment & Plan narrative: This is a 57-year-old with cirrhosis and a personal history of colon polyps. EGD for variceal screening and colon polyp surveillance is pursued today. Time Spent With Patient Critical Care time: I spent a total of [] minutes of critical care time on this patient's care today; this time is exclusive of procedural time.
--- NOTE | 2022-08-25 07:56 | PM.PREOP ---
Pre-operative Note COVID-19 COVID-19 status: Negative Result date/Date tested (Pos, Neg/Pending): 08/24/22 Criteria for continued procedure: Possibility delay results in more complex future surgery or treatment Interval Note History & Physical reviewed/Exam performed by Physician: Yes Changes to H&P: No ASA Class (for procedural sedation): III
[2022-08-25] MEDS: SODIUM CHLORIDE 0.9% 1,000 ML 84 ML IV (08:10)
--- NOTE | 2022-08-25 08:51 | P.OP.EGD&C_ITS ---
Operative Date/Time/Diagnoses Date of procedure: 08/25/22 Time of procedure: 08:52 Pre-op diagnosis: Cirrhosis here for variceal screening. Personal history of hyperplastic polyps. Post-op diagnosis: same Procedure & Clinicians Study performed: EGD with biopsies and colonoscopy with hot snare polypectomies Same procedure as scheduled: Yes Indications: Cirrhosis here for variceal screening. Personal history of hyperplastic polyps. Surgeon: Rashid Pavon Procedure Notes SCOAP/Timeout: Done Procedure in detail: After the risks and benefits were explained, written and verbal informed consent was obtained. The patient was brought into the procedure room and placed into the left lateral decubitus position. Please see nurse foster parent notes for sedation details. The scope was introduced into the mouth through the bite block and advanced under direct visualization to the 2nd portion of the duodenum. The scope was slowly withdrawn carefully examining the mucosa for any defects or lesions. Retroflexed views were accomplished in the stomach. The stomach was decompressed, the scope was then removed from the patient who tolerated the procedure well. The patient was then turned around a digital rectal examination accomplished. The scope was introduced into the rectum and advanced to the cecum as identified by the appendiceal orifice and ileocecal valve. The scope was slowly withdrawn to carefully examine the mucosa for any defects or lesions. Multiple direct views were made through the dentate line for exclusion of pathology. Colon was decompressed scope removed from the patient who tolerated the procedure well. Adult colonoscope Bowel prep fair Scope withdrawal time: 16 minutes Sedation minutes: 33 Complications: none Impression: 1. Duodenum: This was normal from the bulb through the 2nd portion. 2. Stomach: Patient had a diffuse portal gastropathy with scattered medium- sized benign-appearing polyps throughout the body. Couple of these were sampled for histopathology. No varices were noted in the stomach including retroflexed views. 3. Esophagus: The squamocolumnar junction correlated with the top of the gastric folds. GEJ was at 47 cm from the incisors. The patient had evidence of fully flattened out subtle varices (small or grade 1) no stigmata. 4. Colon: Patient had a redundant lengthy colon. There was a prominent venous plexus in the rectum. No varices. There was a 6-7 mm sessile polyp in the ascending colon removed with hot snare. In the transverse there was a 5-6 mm polyp also removed with hot snare. Within the limitations of bowel prep no additional significant pathology was uncovered. There were a couple of diminutive classic hyperplastic appearing polyps in the rectosigmoid region that were left alone. Because of the debris we were forced to suction during the case, the scope became partially clogged limiting suction at the very end. The patient had evidence of grade 2 to grade 3 non thrombosed nonbleeding hemorrhoids. Endoscopic diagnosis 1. Subtle grade 1 varices 2. Gastric polyps 3. Gastropathy 4. Grade 3 hemorrhoids 5. Colon polyps Post-procedure Plan for aftercare: 1. Await histopathology 2. Repeat colonoscopy 3 years 3. Repeat EGD 1 year Disposition: PACU
[2022-08-25 08:57] VITALS: BP 102/74; PULSE 86; RESP 18; TEMP 36.2; O2SAT 96
[2022-08-25 09:02] VITALS: BP 105/73; PULSE 99; RESP 16; O2SAT 98
[2022-08-25 09:08] VITALS: BP 125/60; PULSE 87; RESP 16; O2SAT 98
[2022-08-25 09:12] VITALS: BP 127/87; PULSE 84; RESP 16; O2SAT 98
[2022-08-25 09:17] VITALS: BP 121/84; PULSE 80; RESP 14; TEMP 36.3; O2SAT 98
== END 2022-08-25 09:30 | disposition home or self-care (01) ==
PROVIDERS: PCP Internal Medicine; Referring Provider Internal Medicine Gastroenterology; Visit Provider Internal Medicine Gastroenterology
PROC: 0DJ08ZZ Inspection of Upper Intestinal Tract, Via Natural or Artificial Opening Endoscopic (ICD-10-PCS; CPT 43235; principal; 2022-08-25 08:00)
PROC: 0DJD8ZZ Inspection of Lower Intestinal Tract, Via Natural or Artificial Opening Endoscopic (ICD-10-PCS; CPT 45378; 2022-08-25 08:00)
DX: Z12.11 Encounter for screening for malignant neoplasm of colon (principal); Z86.010 Personal history of colon polyps; K74.69 Other cirrhosis of liver; K75.4 Autoimmune hepatitis; E11.9 Type 2 diabetes mellitus without complications; E78.5 Hyperlipidemia, unspecified; I10 Essential (primary) hypertension; K21.9 Gastro-esophageal reflux disease without esophagitis; Z79.4 Long term (current) use of insulin; Z83.2 Family history of diseases of the blood and blood-forming organs and certain disorders involving the immune mechanism; R79.89 Other specified abnormal findings of blood chemistry; I85.10 Secondary esophageal varices without bleeding; K31.9 Disease of stomach and duodenum, unspecified; K64.2 Third degree hemorrhoids; K31.7 Polyp of stomach and duodenum; D12.2 Benign neoplasm of ascending colon
CPT/HCPCS: 45385; 43239; J2704

== ENCOUNTER → 2024-01-16 10:15 | Outpatient (CLI) | payer OTHER, SELFPAY ==
--- NOTE | 2024-01-16 22:31 | DI.NM.S_ITS ---
DATE OF SERVICE: 01/16/2024 PROCEDURE: Pharmacological perfusion study. INDICATIONS: Chest pain, coronary artery calcification. RADIOPHARMACEUTICAL: 26.7 millicurie technetium-99m Myoview IV was injected at stress and 12.3 millicurie technetium-99m Myoview IV was injected at rest. CARDIAC STRESS: The patient underwent IV Lexiscan perfusion study under the supervision of an attending staff using standard IV Lexiscan as per protocol. Baseline rhythm was sinus with diffuse low-voltage complexes and T-wave inversion in V1 to V2. During stress, no new convincing ischemic changes or significant arrhythmias seen. No chest discomfort. Had minimal dyspnea. Baseline blood pressure 108/70 and heart rate 83, sinus rhythm. No new ischemic changes or significant arrhythmias seen. RAW DATA: There is a significantly increased subdiaphragmatic activity. Gut shadow is prominent near the inferior border of the heart seen. The patient's weight is 290 pounds. The stress LV ejection fraction 71% without any obvious wall motion abnormalities. Resting end-diastolic volume 120 mL. TID ratio 1.03, which is within normal limits. Lung/heart ratio 0.39, which is within normal limits. MYOCARDIAL PERFUSION SCAN: Stress supine, resting supine and stress prone images were compared to each other. Stress supine and resting supine images revealed moderate size, mild to moderately decreased perfusion of inferior wall extending into the inferior apex. During stress prone images, partial improvement of inferior wall and inferoapical defect. No reversible ischemia. CONCLUSION: 1. No obvious reversible ischemia. 2. Improvement of inferior wall defect during stress prone images, but partially improved. Inferior wall is moving well. The patient's weight is 290 pounds. Increased subdiaphragmatic activity as well as gut shadow near the inferior border of the heart. Hence, most likely we are dealing with tissue attenuation artifact including persistent tissue attenuation artifact; however, small old nontransmural inferior wall myocardial infarction extending into the inferior apex cannot be ruled out. Stress left ventricular ejection fraction preserved. Overall, low- risk myocardial perfusion scan. Correlate clinically. Yrn Segura - LAKSHMI/rafy/YASMIN doc#: [id number]/job#: [id number] dd: 01/16/2024 17:01:00 dt: 01/16/2024 21:59:00 DICTATING MD/COPIES TO: Parveen Aldrich MD COPIES MNE: ELMER;
== END ==
PROVIDERS: PCP Student in an Organized Health Care Education/Training Program; Referring Provider Internal Medicine; Visit Provider Internal Medicine
DX: I25.118 Atherosclerotic heart disease of native coronary artery with other forms of angina pectoris (principal); R07.9 Chest pain, unspecified
CPT/HCPCS: 78452; 93017; A9502; J2785

== ENCOUNTER → 2024-04-06 12:57 | Outpatient (CLI) | payer OTHER, SELFPAY | LOC: RESP 12:58 | PROVIDERS: PCP Student in an Organized Health Care Education/Training Program; Referring Provider Internal Medicine; Visit Provider Internal Medicine | DX: J44.9 Chronic obstructive pulmonary disease, unspecified (principal); Z87.891 Personal history of nicotine dependence | CPT/HCPCS: 94060; 94618; 94726; 94729 ==

== ENCOUNTER → 2024-06-25 08:45 | Outpatient (CLI) | payer OTHER, SELFPAY ==
--- NOTE | 2024-06-25 08:46 | DI.US.S_ITS ---
PROCEDURE: US ABDOMEN LIMITED INDICATIONS: CIRRHOSIS OF LIVER TECHNIQUE: Real-time scanning was performed of the abdominal and retroperitoneal organs, with image documentation. Color and pulse Doppler interrogation was also performed of the hepatic and splenic vessels, or of the lesion of interest. COMPARISON: Merged With [facility], , US ABDOMEN LIMITED, 05/11/2019, 13:37. FINDINGS: Liver: Liver demonstrates moderate fatty infiltration with some nodularity along its periphery. The liver measures up to 18.9 cm. Doppler: Main portal vein is patent, with luminal diameter of 22 mm (normal of 13-16 mm). On pulse Doppler interrogation, portal vein flow direction is hepatopetal. Miscellaneous: No free abdominal fluid. IMPRESSION: 1. Mildly enlarged cirrhotic liver. Moderate amount of fatty infiltration is seen in the liver. 2. The main portal vein is mildly enlarged, measuring up to 22 mm in diameter. The main portal vein is patent and demonstrates hepatopetal flow. Dictated by: Dario Adrian M.D. on 06/25/2024 at 11:46 Approved by: Dario Adrian M.D. on 06/25/2024 at 12:15
== END ==
LOC: US 08:46
PROVIDERS: PCP Student in an Organized Health Care Education/Training Program; Referring Provider Internal Medicine Gastroenterology; Visit Provider Internal Medicine Gastroenterology
DX: K74.69 Other cirrhosis of liver (principal); Z12.89 Encounter for screening for malignant neoplasm of other sites
CPT/HCPCS: 76705

== ENCOUNTER → 2025-04-30 11:47 | Outpatient (CLI) | payer OTHER, SELFPAY ==
--- NOTE | 2025-04-30 11:49 | DI.US.S_ITS ---
PROCEDURE: US CAROTID DOPPLER BI INDICATIONS: calcification of right carotid artery TECHNIQUE: Color and pulse Doppler interrogation was performed of both carotid systems, with image documentation and velocity measurements. COMPARISON: None. FINDINGS: Stenosis calculations are based on SRU (Society of Radiologists in Ultrasound) criteria. Right side: Brachial blood pressure: 136/83 mm Hg. Common carotid artery peak systolic velocity: 80 cm/sec. Internal carotid artery peak systolic velocity: 51 cm/sec. Internal carotid artery end diastolic velocity: 18 cm/sec. External carotid artery peak systolic velocity: 77 cm/sec. ICA/CCA peak systolic ratio: 0.8 . Kuo scale imaging description: Dxqo-jn-ctqtbldy plaques Percent internal carotid artery stenosis: Less than 50% . Vertebral artery: Flow direction is antegrade. Left side: Brachial blood pressure: 127/83 mm Hg. Common carotid artery peak systolic velocity: 65 cm/sec. Internal carotid artery peak systolic velocity: 70 cm/sec. Internal carotid artery end diastolic velocity: 25 cm/sec. External carotid artery peak systolic velocity: 72 cm/sec. ICA/CCA peak systolic ratio: 1.1 . Kuo scale imaging description: Uzyf-ro-jwjckpyb plaques Percent internal carotid artery stenosis: Less than 50% . Vertebral artery: Flow direction is antegrade. IMPRESSION: 1. In the right carotid artery, there is less than 50% stenosis based on peak systolic velocity criteria. 2. In the left carotid artery, there is less than 50% stenosis based on peak systolic velocity criteria. 3. Antegrade vertebral arteries. Dictated by: Yoshi Beatty M.D. on 04/30/2025 at 13:29 Approved by: Yoshi Beatty M.D. on 04/30/2025 at 13:30
== END ==
LOC: US 11:48
PROVIDERS: PCP Student in an Organized Health Care Education/Training Program; Referring Provider Student in an Organized Health Care Education/Training Program; Visit Provider Internal Medicine
DX: I65.23 Occlusion and stenosis of bilateral carotid arteries (principal)
CPT/HCPCS: 93880

== ENCOUNTER → 2025-05-21 14:44 | Outpatient (CLI) | payer OTHER, SELFPAY ==
--- NOTE | 2025-05-21 14:45 | DI.ECHO.S_ITS ---
[facility] +---------+ [facility] : : [address] : : [place] : : [id number] : : Phone: [phone] Echocardiogram Report + + :Name: KILEY VOSS Study Date: 05/21/2025 Height: 76 in : :Hospital ReadingLocation: Weight: 275 lb : : Gender: Male BSA: 2.5 m2 : :: 1965 Age: 60 yrs BP: 140/87 mmHg: :Reason For Study: HEART FAILURE : :Ordering Physician: NBA VICTOR Performed By: Zhang Valencia : :Referring: NBA VICTOR : + + Interpretation Summary Technically difficult study secondary to poor acoustic windows. No intracardiac echo contrast utilized. 1. The left ventricular contractility appears to be preserved. Estimate ejection fraction appears to be greater than 55%. Mild concentric left ventricular hypertrophy. Normal diastolic function. 2. Right ventricle was not well-visualized. With limited views the right ventricle contractility appears to be preserved. 3. Mild right atrial and right ventricular enlargement. The left ventricle and left atrium appear to be grossly normal in size. 4. No significant valvular abnormalities noted. 5. No obvious intracardiac shunts. 6. No obvious intracardiac masses nor thrombi. 7. No hemodynamically significant pericardial effusion. Conclusion: Grossly normal biventricular function with no obvious valvular abnormalities. When compared with previous echocardiogram, no apparent changes have occurred. Procedure: A two-dimensional transthoracic echocardiogram with color flow and Doppler was performed. The study quality was technically adequate. Comparison is made with the echocardiogram of 03/19/2014. The patient was in normal sinus rhythm during the exam. Left Ventricle: Left ventricular wall thickness is mildly increased. The left ventricle is moderately dilated. There is no ventricular septal defect visualized. The ejection fraction is estimated to be 60-65%. There are no focal wall motion abnormalities. Diastolic parameters suggest a relaxation abnormality of the left ventricle, consistent with probable normal filling pressures. Right Ventricle: The right ventricle is mildly dilated. The right ventricular systolic function is normal. Atria: The left atrial size is normal. The right atrium is mildly dilated. The atrial septum is aneurysmal. There is no Doppler evidence for an atrial septal defect. Mitral Valve: The mitral valve is grossly normal. There is no mitral regurgitation noted. Aortic Valve: The aortic valve is not well visualized. No aortic regurgitation is present. Tricuspid Valve: The tricuspid valve is not well visualized. No tricuspid regurgitation. Pulmonic Valve: The pulmonic valve is not well visualized. There is no pulmonic valvular regurgitation. Great Vessels: The aortic root is normal size. The dimensions of the ascending aorta are normal. The pulmonary is not well visualized. The inferior vena cava was not well visualized. Pericardium/ Pleura There is no pericardial effusion. There is no pleural effusion. MMode/2D Measurements & Calculations LVIDd: 6.6 cm LVOT diam: 2.4 cm LVIDs: 4.8 cm Ao root diam: 3.9 cm FS: 27.3 % asc Aorta Diam: 3.1 cm EPSS: 1.2 cm IVSd: 1.3 cm LVPWd: 1.4 cm LV alvarez. diameter/BSA (cm/m^2): 2.6 LV sys. diameter/BSA (cm/m^2): 1.9 LA A2 area: 19.2 cm2 RA long axis: 5.8 cm LA A4 area: 19.2 cm2 RA area: 19.1 cm2 LA length (vol): 5.2 cm RA vol: 53.6 ml LA vol: 60.2 ml RA : 21.1 ml/m2 LA vol index: 23.7 ml/m2 RVD1 (basal): 4.5 cm RVD2 (mid): 3.7 cm TAPSE: 2.4 cm Doppler Measurements & Calculations Ao V2 max: 140.0 cm/sec LVOT Max Oli: 102.8 cm/sec Ao V2 mean: 95.6 cm/sec LV V1 max P.2 mmHg Ao max P.8 mmHg LV V1 VTI: 20.0 cm Ao mean P.2 mmHg ABDI(I,D): 3.9 cm2 Ao V2 VTI: 24.0 cm ABDI(V,D): 3.4 cm2 sev ratio: 0.84 ABDI indexed to BSA (cm^2/m^2): 1.5 MV E max oli: 37.6 cm/sec PA V2 max: 82.3 cm/sec MV A max oli: 59.3 cm/sec PA V2 mean: 61.7 cm/sec MV E/A: 0.63 PA mean P.7 mmHg Med Peak E' Oli: 6.8 cm/sec PA pr(Accel): 43.0 mmHg E/E' med: 5.6 Lat Peak E' Oli: 8.3 cm/sec E/E' lat: 4.5 E/e' average: 5.0 MV dec time: 0.20 sec SVLVOT): 94.1 ml Reading Physician:ALENA
== END ==
PROVIDERS: PCP Student in an Organized Health Care Education/Training Program; Referring Provider Internal Medicine; Visit Provider Internal Medicine
DX: I50.22 Chronic systolic (congestive) heart failure (principal)
CPT/HCPCS: 93306

== ENCOUNTER 2025-10-10 09:16 | Day surgery (SDC) | payer OTHER, SELFPAY ==
[2025-10-04 14:27] VITALS: BMI 34.8
--- NOTE | 2025-10-10 | PATH_ITS ---
[facility] Accession Number: [id number] No. of containers..02 Tissue . 01 Material submitted: . PART A: gastrointestinal site - GASTRIC POLYP- GREATER CURVATURE PART B: colon - COLON, SIGMOID POLYP @ 25 . 01 Diagnosis: Part A: GASTRIC POLYP- GREATER CURVATURE: Fundic gland polyp. No Helicobacter organisms identified on H/E stain. No intestinal metaplasia, dysplasia, or malignancy identified. . Part B: COLON, SIGMOID POLYP @ 25: Hyperplastic polyp. [facility] 10/18/20251952 Local . 01 Electronically signed: . Jovanni Beaulieu MD, Pathologist NPI- [id number] . 01 Gross description: . A. Received in formalin with two patient identifiers, and gastric polyp greater curvature is one, 0.8 cm moya tissue fragment, inked, bisected and entirely submitted in A1. . B. Received in formalin with two patient identifiers, and sigmoid polyp is one, 0.4 cm moya tissue fragment, entirely submitted in B1. ([id number]) /MRV 10/18/20251952 Local . 01 Pathologist provided ICD-10: K31.7, K63.5 . 01 CPT . 379825, 672329 Specimen Comment: A courtesy copy of this report has been sent to [facility] Performed at: [address] [facility] [address], [place], [place] [id number] MD Jovanni Beaulieu MD Phone: [phone]
--- NOTE | 2025-10-10 06:39 | PM.HP.IH.1 ---
History of Present Illness History of Present Illness Date Patient Seen: 10/10/25 Chief complaint: Esophagogastroduodenoscopy/Colonoscopy Narrative: 60yo M, h/o portal gastropathy, varices, gastric polyps, IBS, colon polyps, poor colon prep, hemorrhoids. Presents for EGD/colonoscopy today. [facility] Medical History (Updated 10/10/25 @ 06:41 by Deangelo Cooper MD) Esophageal varices determined by endoscopy (2022) Heart failure with mildly reduced ejection fraction Stenosis of right carotid artery Non-ischemic cardiomyopathy Thoracic disc disease RLS (restless legs syndrome) Lumbosacral disc disease IBS (irritable bowel syndrome) Gout GERD (gastroesophageal reflux disease) Depression Colon polyp Clotting disorder CKD (chronic kidney disease) Cervical disc disease Afib Angina pectoris Cervical stenosis of spinal canal Essential tremor CAD (coronary artery disease) Umbilical hernia Chronic liver disease and cirrhosis Autoimmune hepatitis Neuropathy Hyperlipemia Hypertension Sleep apnea COPD (chronic obstructive pulmonary disease) Diabetes Pneumothorax Surgical History (Updated 09/19/25 @ 09:58 by Claire Mitchell RN) History of liver biopsy (2009) History of lung surgery (2020) Family History Father Hypertension Heart disease Diabetes mellitus Social History marital status: household members: spouse lives independently: Yes Smoking Status: Former smoker alcohol intake: never substance use type: does not use Meds Home Medications and Allergies Home Medications ?Medication ?Instructions ?Recorded ?Confirmed ?Type Metformin Hydrochloride 2,000 mg PO BIDCC ##0 07/31/12 11/03/22 History (GLUCOPHAGE) atorvastatin 40 mg tablet (Lipitor) 40 mg PO HS ##0 07/31/12 11/03/22 History hydrochlorothiazide 25 mg tablet 25 mg PO QDAY ##0 07/31/12 11/03/22 History ASPIRIN (#ASPIR 81) 81 mg PO Q DAY ##0 08/01/12 11/03/22 History Multivitamin, Minerals, and 1 tab PO Q DAY ##0 08/01/12 11/03/22 History (#CENTRUM SILVER) bupropion HCl 150 mg tablet,12 hr 150 mg PO Q DAY ##0 08/01/12 11/03/22 History sustained-release (Wellbutrin SR) budesonide 3 mg 3 mg PO DAILY 08/25/22 11/03/22 History capsule,delayed,extended release duloxetine 30 mg capsule,delayed 60 mg PO DAILY 08/25/22 11/03/22 History release (Cymbalta) insulin glargine 100 unit/mL (3 45 unit SUBCUT BID 08/25/22 11/03/22 History mL) subcutaneous pen (Lantus Solostar U-100 Insulin) lisinopril 5 mg tablet 5 mg PO DAILY 08/25/22 11/03/22 History tamsulosin 0.4 mg capsule 0.4 mg PO BEDTIME 08/25/22 11/03/22 History albuterol sulfate 90 mcg/actuation 1 inh inhalation Q4-6H PRN 11/03/22 11/03/22 History breath activated powder inhaler azathioprine 50 mg tablet (Imuran) 50 mg PO DAILY 11/03/22 11/03/22 History dulaglutide 3 mg/0.5 mL 3 mg SUBCUT QWEEK 11/03/22 11/03/22 History subcutaneous pen injector (Trulicity) fluticasone propionate 50 1 spray intranasal DAILY 11/03/22 11/03/22 History mcg/actuation nasal spray,suspension gabapentin 300 mg capsule 300 mg PO BEDTIME 11/03/22 11/03/22 History ipratropium 0.5 mg-albuterol 3 mg 3 ml inhalation Q6-8H PRN 11/03/22 11/03/22 History (2.5 mg base)/3 mL nebulization soln pantoprazole 20 mg tablet,delayed 20 mg PO DAILY 11/03/22 11/03/22 History release (Protonix) tiotropium bromide 2.5 2 puff inhalation DAILY 11/03/22 11/03/22 History mcg/actuation mist for inhalation (Spiriva Respimat) sodium,potassium,mag sulfates 17.5 See Rx Instructions PO .COMPLEX 09/06/25 Rx gram-3.13 gram-1.6 gram oral soln #354 mL (Suprep Bowel Prep Kit) carvedilol 6.25 mg tablet 6.25 mg PO BID 10/04/25 10/04/25 History Allergies Allergy/AdvReac Type Severity Reaction Status Date / Time sacubitril (From Entresto) Allergy Severe Hypotension, Verified 09/19/25 09:31 fatigue. valsartan (From Entresto) Allergy Severe Hypotension, Verified 09/19/25 09:31 fatigue. adhesive tape AdvReac Itching & Verified 09/19/25 09:38 rash. Exam Narrative Exam Narrative: Const General: healthy appearing, comfortable and no acute distress Orientation: alert and oriented x3 HENMT Ears: hearing grossly normal bilaterally Eyes Visual Camacho: normal visual camacho by confrontation Conjunctivae: conjunctivae normal Sclera: sclerae normal EOM: EOM intact bilaterally Resp Effort & Inspection: normal respiratory effort and able to speak in complete sentences Cardio Rate: regular rate GI Palpation: soft (NT) Extrem General: no pedal edema and no calf tenderness Assessment & Plan Assessment and plan (1) Portal hypertensive gastropathy: Status: Acute (2) Hemorrhoids: Qualifiers: Hemorrhoid type: unspecified Qualified Code(s): K64.9 - Unspecified hemorrhoids Status: Acute Plan Plan EGD/colonoscopy, possible biopsy. The risks, benefits and options regarding the procedure were explained to the patient in detail. Risk discussion included but not limited to: bleeding, perforation, unable to reach cecum, missed lesion. The patient was encouraged to ask questions and they were answered to their satisfaction. The patient understands and is agreeable to proceed. Time-Based Coding :: [TOTAL MINUTES] spent with patient and on the chart (including review of chart, obtaining history, exam, reviewing outside data, placing orders, documenting exam and treatment plan, and counseling patient) on [DATE]. PROFEE Patient Services Technician Document charge(s): Yes Charge Codes Inpatient/observation care including admit and discharge same day: 55571
[2025-10-10 09:47] VITALS: BP 133/81; PULSE 83; RESP 16; TEMP 36.3; O2SAT 94
[2025-10-10] MEDS: LACTATED RINGERS 1,000 ML 42 ML IV (09:57)
--- NOTE | 2025-10-10 10:45 | P.OP.EGD&C_ITS ---
Operative Date/Time/Diagnoses Date of procedure: 10/10/25 Time of procedure: 11:38 Pre-op diagnosis: Iron deficiency anemia, portal gastropathy, esophageal varices, IBS, colon polyps, hemorrhoids Post-op diagnosis: other (Portal gastropathy, multiple gastric polyps) Procedure & Clinicians Study performed: EGD/Colonoscopy with biopsy, polypectomy Same procedure(s) as scheduled: Yes Indications: 60yo M, h/o iron deficiency anemia, portal gastropathy, esophageal varices, IBS, colon polyps, hemorrhoids Surgeon: Deangelo Cooper Anesthesia Type: MAC +/- Procedure Notes SCOAP/Timeout: Performed Procedure in detail: EGD Informed consent was obtained. The procedure, its risks, benefits, and alternatives were discussed. Patient understood and agreed to proceed. The patient was placed in the left lateral decubitus position with head elevated. Sedation given per anesthesia. The video endoscope was inserted into the oropharynx and guided under direct vision into the esophagus, stomach, and duodenum which were carefully examined. The scope was retroflexed to examine the hiatus and gastroesophageal junction. Antral biopsies were obtained for Helicobacter pylori. The patient tolerated the procedure very well. There were no apparent complications. Significant EGD findings: Z-line noted at: 37cm Multiple large (1-2cm) gastric polyps along greater curvature, largest (2cm) and most concerning looking polyp removed for sampling with hot snare and retrieved for pathology, polyp appeared adenomatous and pedunculated and erythematous, did not pursue aggressive removal of all gastric polyps due to portal gastropathy Duodenum normal No evidence for esophageal varices No peptic ulcer disease No hiatal hernia seen No esophagitis No evidence of recent bleeding Most likely source of iron deficiency anemia based on today's endoscopy could be multiple adenomatous gastric polyps. Colonoscopy Patient placed in left lateral recumbent position. Time out was performed. Procedural sedation was administered by anesthesia. Examination began with a thorough inspection of the perianal area. There was no evidence of fissures, fistulae, external hemorrhoids or cutaneous malignancy. The colonoscope was then placed into the rectum and the lumen was insufflated with carbon dioxide. The scope was carefully advanced forward. Ultimately the cecum was intubated and confirmed by identification of the ileocecal valve, the appendiceal orifice and the confluence of the taenia. The scope was then slowly withdrawn examining the colon thoroughly in all directions. In the rectum, retroflexion of the scope was performed for inspection of the distal rectum and anal canal. ?Significant colonoscopy findings: ?1. Quality of the preparation-fair, [place] 1-2, improved with irrigation/suction ?2. Innumerate, benign appearing, 3mm sessile polyps, appear hyperplastic, throughougt rectum and sigmoid, for sampling, one removed with hot snare and retrieved for pathology, did not excessively biopsy hyperplastic polyps due to portal hypertension; did not see worrisome adenomatous lesion 3. Moderate sized internal hemorrhoids 4. No active bleeding 5. Doubtful any of the above contributing to iron deficiency anemia Scope withdrawal time: 10 minutes Findings: polyp (gastric polyps, colon polyps, internal hemorrhoids) Specimen(s): other (biopsies) Estimated Blood Loss: 5 Complications: none Impression: Gastric polyps most likely contributor to iron deficiency anemia Hyperplastic polyps in colon Internal hemorrhoids Post-procedure Recommendations: Colonscopy in 10 years Plan for aftercare: PACU then home Follow up: as needed Disposition: PACU
[2025-10-10 11:25] VITALS: BP 104/65; PULSE 80; RESP 14; TEMP 36.6; O2SAT 93
[2025-10-10 11:30] VITALS: BP 106/70; PULSE 80; RESP 16; O2SAT 95
[2025-10-10 11:35] VITALS: BP 105/67; PULSE 81; RESP 14; O2SAT 96
[2025-10-10 11:38] VITALS: BP 105/68; PULSE 77; RESP 16; O2SAT 96
== END 2025-10-10 12:09 | disposition home or self-care (01) ==
PROVIDERS: PCP Family Medicine; Referring Provider Surgery; Visit Provider Surgery
PROC: 0DJ08ZZ Inspection of Upper Intestinal Tract, Via Natural or Artificial Opening Endoscopic (ICD-10-PCS; CPT 43251; principal; 2025-10-10 10:45)
PROC: 0DJD8ZZ Inspection of Lower Intestinal Tract, Via Natural or Artificial Opening Endoscopic (ICD-10-PCS; CPT 45378; 2025-10-10 10:45)
DX: D50.9 Iron deficiency anemia, unspecified (principal); K31.7 Polyp of stomach and duodenum; K62.1 Rectal polyp; K63.5 Polyp of colon; K76.6 Portal hypertension; K31.89 Other diseases of stomach and duodenum; K64.8 Other hemorrhoids; Z86.0100 Personal history of colon polyps, unspecified; E11.22 Type 2 diabetes mellitus with diabetic chronic kidney disease; I13.0 Hypertensive heart and chronic kidney disease with heart failure and stage 1 through stage 4 chronic kidney disease, or unspecified chronic kidney disease; N18.9 Chronic kidney disease, unspecified; I50.20 Unspecified systolic (congestive) heart failure; E78.5 Hyperlipidemia, unspecified; I48.91 Unspecified atrial fibrillation; I25.119 Atherosclerotic heart disease of native coronary artery with unspecified angina pectoris; J44.9 Chronic obstructive pulmonary disease, unspecified; K58.9 Irritable bowel syndrome, unspecified; K21.9 Gastro-esophageal reflux disease without esophagitis; G47.33 Obstructive sleep apnea (adult) (pediatric); K74.60 Unspecified cirrhosis of liver; R25.1 Tremor, unspecified; E66.9 Obesity, unspecified; Z68.34 Body mass index [BMI] 34.0-34.9, adult; Z79.4 Long term (current) use of insulin; Z79.84 Long term (current) use of oral hypoglycemic drugs; Z87.891 Personal history of nicotine dependence
CPT/HCPCS: 43251; 45385; J2704; J7120